=== PATIENT | male | born 1970 | race African-American/Black ===

== ENCOUNTER 2018-01-30 11:19 | Emergency (ER) | payer BC ==
[2018-01-30] MEDS ORDERED: ASPIRIN 81 MG TABLET, CHEWABLE PO ONE (11:53)
--- NOTE | 2018-01-30 11:55 | ER Document Report ---
ED Medical Screen (RME) - General Chief Complaint: Chest Pain Stated Complaint: CHEST PAIN Time Seen by Provider: 01/30/18 11:53 Mode of Arrival: Ambulatory Information source: Patient, [facility] Records Notes: 27-year-old male with no reported past medical history presents with left-sided chest pain that started 3-1/2 hours prior to arrival. Pain is described as located in the left chest, intermittent, sharp with radiation to his neck and left upper extremity. I have greeted and performed a rapid initial assessment of this patient. A comprehensive ED assessment and evaluation of the patient, analysis of test results and completion of medical decision making process we will be contacted by additional ED providers. General; no acute distress Respiratory; lungs clear to auscultation bilaterally Cardiac; regular rate rhythm no murmurs. TRAVEL OUTSIDE OF THE [place] IN LAST 30 DAYS: No - HPI Onset: Just prior to arrival Onset/Duration: Intermittent Quality of pain: Stabbing Severity: Moderate Associated Symptoms: None Exacerbated by: Denies Relieved by: Denies Similar symptoms previously: No Recently seen / treated by doctor: No - Related Data Smoking: Non-smoker Frequency of alcohol use: None Drug Abuse: None Allergies/Adverse Reactions: Penicillins Allergy (Verified 01/30/18 11:20) Sulfa (Sulfonamide Antibiotics) Allergy (Verified 01/30/18 11:20) Past Medical History Pulmonary Medical History: Reports: Hx Asthma Renal/ Medical History: Denies: Hx Peritoneal Dialysis Physical Exam - Vital signs Vitals: Temp Pulse Resp BP Pulse Ox 98.7 F 63 14 139/72 H 97 01/30/18 11:34 01/30/18 11:34 01/30/18 11:34 01/30/18 11:34 01/30/18 11:34 Course - Vital Signs Vital signs: Temp Pulse Resp BP Pulse Ox 98.7 F 63 14 139/72 H 97 01/30/18 11:34 01/30/18 11:34 01/30/18 11:34 01/30/18 11:34 01/30/18 11:34
[2018-01-30 12:38] LABS: ABSOLUTE EOSINOPHILS # (AUTO) 0.2 10^3/uL (0.0-0.6); ABSOLUTE LYMPHOCYTES (AUTO) 1.5 10^3/uL (0.5-4.7); ABSOLUTE MONOCYTES (AUTO) 0.4 10^3/uL (0.1-1.4); BASOPHILS % (AUTO) 1.1 % (0-2); EOSINOPHILS % (AUTO) 4.2 % (0-6); HEMATOCRIT 45.1 % (37.9-51.0); HEMOGLOBIN 15.1 g/dL (13.5-17.0); LYMPHOCYTES % (AUTO) 37.1 % (13-45); MEAN CORPUSCULAR HEMOGLOBIN 26.4 pg (27.0-33.4); MEAN CORPUSCULAR HGB CONC 33.5 g/dL (32.0-36.0); MEAN CORPUSCULAR VOLUME 79 fl (80-97); MONOCYTES % (AUTO) 9.3 % (3-13); PLATELET COUNT 201 10^3/uL (150-450); RED BLOOD COUNT 5.71 10^6/uL (4.35-5.55); RED CELL DISTRIBUTION WIDTH 14.6 % (11.5-14.0); SEGMENTED NEUTROPHILS % (AUTO) 48.3 % (42-78); TOTAL CELLS COUNTED % (AUTO) 100 %; WHITE BLOOD COUNT 4.1 10^3/uL (4.0-10.5)
[2018-01-30 12:54] LABS: ALANINE AMINOTRANSFERASE 33 U/L (21-72); ALBUMIN 4.4 g/dL (3.5-5.0); ALKALINE PHOSPHATASE 57 U/L (38-126); ANION GAP 7 (5-19); ASPARTATE AMINO TRANSFERASE 49 U/L (17-59); BILIRUBIN,DIRECT 0.3 mg/dL (0.0-0.4); BLOOD UREA NITROGEN 15 mg/dL (7-20); CALCIUM 9.4 mg/dL (8.4-10.2); CARBON DIOXIDE 29 mmol/L (22-30); CHLORIDE 101 mmol/L (98-107); CREATINE KINASE 437 U/L (55-170); GLUCOSE 81 mg/dL (75-110); SODIUM 137.4 mmol/L (137-145); TOTAL PROTEIN 7.9 g/dL (6.3-8.2)
[2018-01-30 13:12] LABS: CREATINE KINASE MB 2.57 ng/mL (<4.55); TROPONIN I 0.015 ng/mL
--- NOTE | 2018-01-30 13:14 | RADIOLOGY REPORT (SQ) ---
EXAM DESCRIPTION: CHEST SINGLE VIEW COMPLETED DATE/TIME: 01/30/2018 12:43 pm REASON FOR STUDY: chest pain COMPARISON: None. EXAM PARAMETERS: NUMBER OF VIEWS: One view. TECHNIQUE: Single frontal radiographic view of the chest acquired. RADIATION DOSE: NA LIMITATIONS: None. FINDINGS: LUNGS AND PLEURA: No opacities, masses or pneumothorax. No pleural effusion. MEDIASTINUM AND HILAR STRUCTURES: No masses. Contour normal. HEART AND VASCULAR STRUCTURES: Heart normal in size. Normal vasculature. BONES: No acute findings. HARDWARE: None in the chest. OTHER: No other significant finding. IMPRESSION: NO ACUTE RADIOGRAPHIC FINDING IN THE CHEST. TECHNICAL DOCUMENTATION: JOB ID: [id number] [employer]- All Rights Reserved Reading location - IP/workstation name: [email or web address]
--- NOTE | 2018-01-30 16:15 | ER Document Report ---
ED General - General Chief Complaint: Chest Pain Stated Complaint: CHEST PAIN Time Seen by Provider: 01/30/18 11:53 Mode of Arrival: Ambulatory Notes: Patient is a 47-year-old male that presents to the emergency department for chief complaint of chest pain. Patient states that after he was at the gym, he was doing upper body exercises, he got home this morning and felt a sharp pain in his left chest that lasted for several minutes, this was around 830 this morning, it then went away on its own, and then came back and he felt the pain go down his arm and into his jaw he decided to go to his primary care physician' s office who directed him to the emergency department to be evaluated. Denies prior history of chest pain. He states he had palpitations as a young child but nothing recently. He denies having any lightheadedness, dizziness, syncopal episodes, he also denies having any shortness of breath, nausea, vomiting or diaphoresis associated. No prior history of heart cath or stress test. He denies smoking history. Past Medical History: Denies chronic medical conditions Past Surgical History: Denies surgical history Social History: Denies tobacco, alcohol or drug use. Family History: Reviewed and noncontributory for presenting illness Allergies: Reviewed, see documented allergy list. REVIEW OF SYSTEMS: Unless otherwise stated in this report the patient's positive and negative responses for review of systems for constitutional, eyes, ENT, cardiovascular, respiratory, gastrointestinal, neurological, genitourinary, musculoskeletal, and integumentary systems and related systems to the presenting problem are either as stated in the HPI or were not pertinent or were negative for the symptoms and/or complaints related to the presenting medical problem. PHYSICAL EXAMINATION: Vital signs reviewed, nursing noted reviewed. GENERAL: Well-appearing, well-nourished and in no acute distress. HEAD: Atraumatic, normocephalic. EYES: Eyes appear normal, extraocular movements intact, sclera anicteric, conjunctiva are normal. ENT: nares patent, oropharynx clear without exudates. Moist mucous membranes. NECK: Normal range of motion, supple without lymphadenopathy LUNGS: Breath sounds clear to auscultation bilaterally and equal. No wheezes rales or rhonchi. No chest wall tenderness HEART: Regular rate and rhythm without murmurs ABDOMEN: Soft, nontender, normoactive bowel sounds. No rebound, guarding, or rigidity. No masses appreciated. EXTREMITIES: Nontender, good range of motion, no pitting or edema. NEUROLOGICAL: No focal neurological deficits. Moves all extremities spontaneously Motor and sensory grossly intact on exam. PSYCH: Normal mood, normal affect. SKIN: Warm, Dry, normal turgor, no rashes or lesions noted on exposed skin TRAVEL OUTSIDE OF THE [place] IN LAST 30 DAYS: No - Related Data Allergies/Adverse Reactions: Penicillins Allergy (Verified 01/30/18 11:20) Sulfa (Sulfonamide Antibiotics) Allergy (Verified 01/30/18 11:20) Past Medical History - General Information source: Patient, [facility] Records - Social History Smoking Status: Never Smoker Frequency of alcohol use: None Drug Abuse: None Family History: Reviewed & Not Pertinent Patient has suicidal ideation: No Patient has homicidal ideation: No Pulmonary Medical History: Reports: Hx Asthma Renal/ Medical History: Denies: Hx Peritoneal Dialysis Physical Exam - Vital signs Vitals: Temp Pulse Resp BP Pulse Ox 98.7 F 63 14 139/72 H 97 01/30/18 11:34 01/30/18 11:34 01/30/18 11:34 01/30/18 11:34 01/30/18 11:34 Course - Re-evaluation Re-evalutation: Presentation of chest pain in an otherwise well appearing patient. Low clinical suspicion for ACS given clinical history, exam, EKG without ST elevations or depressions, and negative initial troponin. HEART score less than or equal to 3. PE also seems unlikely given clinical history, absence of tachycardia or dyspnea. Patient is PERC criteria negative. CXR without evidence of pneumothorax or pneumonia. No widened mediastinum. Aortic dissection also seems unlikely given history, symmetric pulses, CXR, and vitals. HEART Score: History 1 ECG 0 Age 1 Risk Factors 0 Troponin 0 Total: 2 Chest pain in a patient without evidence of cardiac or other serious etiology on workup today. I discussed with patient that, based on their age, risk factors and emergency department testing today, the likelihood that their symptoms are related to a heart attack is very low (estimated risk of heart attack or over the next 30 days of less than 1%). The patient demonstrates decision making capacity and has verbalized an understanding of these risks to me. Based on this, the patient has chosen to follow-up as an outpatient. Usual chest pain return precautions reviewed. The patient states understanding and agreement with this plan. - Vital Signs Vital signs: Temp Pulse Resp BP Pulse Ox 98.5 F 57 L 18 134/77 H 99 01/30/18 17:07 01/30/18 17:07 01/30/18 17:07 01/30/18 17:07 01/30/18 17:07 - Laboratory Result Diagrams: 01/30/18 12:10 01/30/18 12:10 Laboratory results interpreted by me: 01/30/18 01/30/18 12:10 12:10 RBC 5.71 H MCV 79 L MCH 26.4 L RDW 14.6 H Creatine Kinase 437 H Discharge - Discharge Clinical Impression: Chest pain Qualifiers: Chest pain type: unspecified Qualified Code(s): R07.9 - Chest pain, unspecified Condition: Stable Disposition: HOME, SELF-CARE Referrals: GAGANDEEP HENDRICKS MD [Primary Care Provider] - Follow up in 3-5 days () FRANCISCO RUSSELL MD [ACTIVE STAFF] - Follow up tomorrow (call for appointment , for possible stress testing. )
[2018-01-30 17:08] VITALS: BP 134/77
--- NOTE | 2018-01-30 19:37 | EKG REPORT ---
SEVERITY:- NORMAL ECG - SINUS RHYTHM : Confirmed by: Livia Cobos MD 30-Jan-2018 19:36:35
== END 2018-01-30 17:20 | disposition home or self-care (01) ==
LOC: ER 11:19
DX: R07.9 Chest pain, unspecified (principal); Z88.0 Allergy status to penicillin; Z88.2 Allergy status to sulfonamides
CPT/HCPCS: 36415; 71045; 80053; 82550; 82553; 84484; 85025; 93005; 93010; 99285